=== PATIENT | female | born 1980 | race Caucasian/White ===

== ENCOUNTER 2019-05-29 11:33 | Inpatient (IN) | payer MEDICAID ==
[~2019-05-29] VITALS: Ht 157.5 cm; Wt 64.9 kg
[2019-05-29 12:43] LABS: microscopic required? NO
[2019-05-29 12:48] LABS: urine erythrocyte NEGATIVE (NEGATIVE)
[2019-05-29 12:54] LABS: CALCIUM 8.5 mg/dL (8.5-10.1); CARBON DIOXIDE 25.4 mmol/L (21-32); CHLORIDE SERUM 98 mmol/L (98-107); CREATININE SERUM 0.6 mg/dL (0.6-1.0); GFR1 > 60 mL/min; GLUCOSE SERUM 110 mg/dL (74-106); POTASSIUM SERUM 3.2 mmol/L (3.5-5.1); SODIUM SERUM 134 mmol/L (136-145)
[2019-05-29 12:59] LABS: ALBUMIN 4.3 g/dL (3.4-5.0); ALKALINE PHOSPHATASE 50 U/L (46-116); ALT/SGPT 22 U/L (14-59); AST/SGOT 9 U/L (15-37); BILIRUBIN TOTAL 0.69 mg/dL (0.20-1.00); LIPASE 127 IU/L (73-393); TOTAL PROTEIN, SERUM 7.8 g/dL (6.4-8.2)
[2019-05-29 13:09] LABS: BASOPHIL % 0.2 % (0-2); PLATELET COUNT 116 x10^3mcL (130-400); RED CELL DISTRIBUTION WIDTH 13.1 % (11.5-14.5)
[2019-05-29 15:57] LABS: CHOLESTEROL/HDL RATIO 3.8; PHOSPHOROUS 2.4 mg/dL (2.5-4.9)
[2019-05-29 16:06] LABS: T3 TOTAL 0.87 ng/mL
[2019-05-29 16:24] LABS: FREE T4 1.07 ng/dL (0.76-1.46); FREE THYROXINE INDEX 2.8 ug/dL (1.4-4.5); T4(THYROXINE) 7.9 ug/dL (4.7-13.3)
[2019-05-29 18:14] VITALS: BP 96/51
[2019-05-29 18:21] VITALS: Ht 157.5 cm; Wt 64.9 kg
[2019-05-29 18:51] LABS: AMPHETAMINE QUAL UR NONE DETECTED (See below)
[2019-05-29 19:35] VITALS: BP 99/57
[2019-05-30 05:03] VITALS: BP 85/55
[2019-05-30 06:39] VITALS: BP 90/58
[2019-05-30 06:54] LABS: CALCIUM 7.2 mg/dL (8.5-10.1); CARBON DIOXIDE 23.3 mmol/L (21-32); CHLORIDE SERUM 109 mmol/L (98-107); CREATININE SERUM 0.6 mg/dL (0.6-1.0); GFR1 > 60 mL/min; GLUCOSE SERUM 107 mg/dL (74-106); MAGNESIUM 1.9 mg/dL (1.8-2.4); PHOSPHOROUS 2.9 mg/dL (2.5-4.9); POTASSIUM SERUM 3.9 mmol/L (3.5-5.1); SODIUM SERUM 141 mmol/L (136-145)
[2019-05-30 06:56] LABS: RED CELL DISTRIBUTION WIDTH 13.5 % (11.5-14.5)
[2019-05-30 07:45] LABS: BASOPHIL % 0 % (0-2); PLATELET COUNT 111 x10^3mcL (130-400)
[2019-05-30 08:10] VITALS: BP 104/60
[2019-05-30] MEDS ORDERED: KEFLEX500 M1 PO (08:55)
[2019-05-30] MEDS ORDERED: IBUPROFEN400 MG PO (08:56)
[2019-05-30 11:21] VITALS: BP 104/60
== END 2019-05-30 12:05 | disposition home or self-care (01) | DRG 233 ==
LOC: ED 11:33 → MU 15:06
PROVIDERS: Emergency Medicine; Surgery; ADMIT General Practice
PROC: 0DTJ4ZZ Resection of Appendix, Percutaneous Endoscopic Approach (ICD-10-PCS; principal; 2019-05-29 16:30)
DX: K35.33 Acute appendicitis with perforation, localized peritonitis, and gangrene, with abscess (principal); D69.6 Thrombocytopenia, unspecified; E87.1 Hypo-osmolality and hyponatremia; E83.39 Other disorders of phosphorus metabolism; E87.6 Hypokalemia; E78.5 Hyperlipidemia, unspecified; Z83.3 Family history of diabetes mellitus; Z68.24 Body mass index [BMI] 24.0-24.9, adult
CPT/HCPCS: 84439; G0378; J0330; J0696; J1885; J2250; J2405; J2543; J2704; J2710; J3010; J3490; J7030; J7042; J7060; J7120; Q9967